=== PATIENT | female | born 1985 | race African-American/Black ===

== ENCOUNTER 2017-12-18 12:50 | Emergency (ER) | payer OTHER ==
[~2017-12-18] VITALS: Ht 162.6 cm; Wt 72.6 kg
[~2017-12-18 12:50] MED LIST: CIPRO HC OTIC S10 ML OTIC; FLEXERIL PO; MOBIC15 MG PO; NOHOMEMEDICATIONS; PREDNISONE 20 M20 MG PO
[2017-12-18] MEDS ORDERED: VENTOLIN HFA 1818 GM INH (14:22)
[2017-12-18] MEDS ORDERED: TESSALON PERLE100 MG PO (14:22)
[2017-12-18 14:38] VITALS: BP 114/75
== END 2017-12-18 14:40 | disposition home or self-care (01) ==
LOC: ER 12:50
DX: J40 Bronchitis, not specified as acute or chronic (principal); Z88.0 Allergy status to penicillin